=== PATIENT | male | born 1990 | race Two or more races ===

== ENCOUNTER 2025-07-09 20:49 | Emergency (ER) | payer OTHER ==
[~2025-07-09] VITALS: Ht 170.2 cm; Wt 61.2 kg
[2025-07-09] MEDS ORDERED: TDAP [DIPH/PERTUSSIS/TET] 0.5 ML VIAL IM ONE (21:35)
[2025-07-09 21:45] LABS: PLATELET COUNT (AUTO) 332 K/uL (150-450); RED BLOOD CELL COUNT(AUTO) 5.34 MIL/uL (4.5-6.0); RED CELL DISTRIBUTION WIDTH 14.8 % (11.5-15.0); WHITE BLOOD COUNT (AUTO) 11.8 K/uL (4.3-11.0)
[2025-07-09] MEDS: IV NS 0.9% 1,000 ML BAG IV ONE (21:46)
[2025-07-09] MEDS: TDAP [DIPH/PERTUSSIS/TET] 0.5 ML VIAL IM ONE (21:48)
[2025-07-09 21:51] LABS: CALCIUM, SERUM 9.1 mg/dL (8.5-10.1); CREATININE 0.9 mg/dL (0.6-1.3); SODIUM SERUM 139.0 mmol/L (136-145); UREA NITROGEN, BLOOD 9.0 mg/dL (7-18)
[2025-07-10 00:49] VITALS: BP 110/70; TEMP 98.6; O2SAT 100
[2025-07-10] MEDS: ASPIRIN 325 MG TABLET PO ONE (00:49)
== END 2025-07-10 00:50 | disposition left against medical advice (07) ==
LOC: ER 21:12
DX: S01.01XA Laceration without foreign body of scalp, initial encounter (principal); M53.3 Sacrococcygeal disorders, not elsewhere classified; R55 Syncope and collapse; I21.4 Non-ST elevation (NSTEMI) myocardial infarction; Z91.048 Other nonmedicinal substance allergy status; Z60.2 Problems related to living alone; W22.8XXA Striking against or struck by other objects, initial encounter; Y93.89 Activity, other specified; Y92.89 Other specified places as the place of occurrence of the external cause; Y99.8 Other external cause status
CPT/HCPCS: 12001; 36415; 70450; 71045; 72220; 80048; 84484; 85025; 90471; 90715; 93005; 96360; 99285; J7030